=== PATIENT | male | born 1945 | race Caucasian/White ===

== ENCOUNTER 2020-06-16 17:32 | Inpatient (IN) ==
[2020-06-16] MEDS ORDERED: allopurinoL 300 MG TABLET PO PRN (18:10)
[2020-06-16] MEDS ORDERED: allopurinoL 100 MG TABLET PO PRN (18:10)
[2020-06-16] MEDS ORDERED: UBIQUINOL PO SCH (21:00)
[2020-06-16] MEDS ORDERED: Loratadine 10 MG TABLET PO SCH (21:00)
[2020-06-16] MEDS ORDERED: Furosemide 20 MG TABLET PO SCH (21:00)
[2020-06-16] MEDS ORDERED: Acetaminophen 325 MG TABLET PO PRN (21:53)
[2020-06-16] MEDS ORDERED: Sulfamethoxazole/Trimeth Oral Soln 400-80mg/10 ML UDC PO SCH (22:45)
[2020-06-17] MEDS ORDERED: AMPICILLIN IVPB SCH
[2020-06-17] MEDS ORDERED: SULBACTAM IVPB SCH
[2020-06-17] MEDS ORDERED: SODIUM CHLORIDE MINI 0.9% IVPB SCH
[2020-06-17] MEDS: Sacubitril/Valsartan 49/51 MG 1 TABLET PO SCH ×3 (00:01→21:04)
[2020-06-17] MEDS: Benzonatate 100 MG CAPSULE PO PRN ×2 (02:16→21:04)
[2020-06-17 06:41] LABS: Basophils % 0.4 %; Eosinophils # 0.2 K/mcL (0.0-0.6); Eosinophils % 2.4 %; Hematocrit 31.2 % (37.5-50.1); Immature Granulocytes % 0.4 % (0-4); Lymphocytes # 0.6 K/mcL (0.6-4.6); Mean Corpuscular HGB Conc 32.1 g/dL (31.6-35.5); Mean Corpuscular Hemoglobin 30.3 pg (28.0-33.3); Mean Corpuscular Volume 94.5 fL (83.0-100.0); Mean Platelet Volume 9.5 fL (9.4-12.4); Monocytes # 0.6 K/mcL (0.0-1.3); Monocytes % 7.8 %; Neutrophils # 5.8 K/mcL (1.6-8.9); Platelet Count 243 K/mcL (140-400); Red Cell Distribution Width 14.4 % (11.5-14.5); White Blood Count 7.2 K/mcL (4.3-11.1)
[2020-06-17 07:02] LABS: INR 1.6; Prothrombin Time 17.8 Seconds (9.4-12.1)
[2020-06-17 07:14] LABS: BUN/Creatinine Ratio 20 (6-26); Blood Urea Nitrogen 20 mg/dL (8-23); Calcium 8.3 mg/dL (8.6-10.3); Carbon Dioxide 28 mEq/L (23-29); Chloride 105 mEq/L (98-107); Glucose 193 mg/dL (70-105); Osmolality,Calculated 296 (280-300); Potassium 4.7 mEq/L (3.5-5.1); Sodium 139 mEq/L (136-145); eGFR For African Americans > 60 (> 60); eGFR For Non-African Americans > 60 (> 60)
[2020-06-17] MEDS ORDERED: carvediloL 6.25 MG TABLET PO SCH (08:00)
[2020-06-17] MEDS ORDERED: Furosemide 20 MG TABLET PO SCH (08:00)
[2020-06-17] MEDS ORDERED: Warfarin perPT PO PRN (08:01)
[2020-06-17] MEDS ORDERED: Famotidine 20 MG TABLET PO SCH (09:00)
[2020-06-17] MEDS ORDERED: cephALEXin 500 MG CAPSULE PO SCH (09:30)
[2020-06-17] MEDS: Multivit/Ca/Min/Fe/FA 1 TAB TABLET PO SCH (10:25)
[2020-06-17] MEDS: amLODIPine 5 MG TABLET PO SCH (10:25)
[2020-06-17] MEDS: Aspirin Enteric Coated 81 MG Tablet PO SCH (10:25)
[2020-06-17] MEDS: carvediloL 25 MG TABLET PO SCH ×2 (10:28→17:04)
[2020-06-17] MEDS: LINAGLIPTIN 5 MG PO SCH (10:38)
[2020-06-17] MEDS ORDERED: *HR* Dextrose 50 % in Water (Vial) 50 ML VIAL IVP PRN (12:56)
[2020-06-17] MEDS ORDERED: Dextrose Gel 15 GM/37.5 ML TUBE PO PRN ×2 (12:56)
[2020-06-17] MEDS ORDERED: D5% in Water 1,000 ML IVC PRN (12:56)
[2020-06-17] MEDS: allopurinoL 300 MG TABLET PO SCH (14:21)
[2020-06-17] MEDS: Furosemide 40 MG TABLET PO SCH ×2 (14:21→17:04)
[2020-06-17] MEDS: Amoxicillin 500 MG CAPSULE PO SCH ×2 (14:32→21:03)
[2020-06-17] MEDS: Insulin LISPRO 300 UNITS/3 ML VIAL SUBQ SCH (17:04)
[2020-06-17] MEDS ORDERED: *HR* Warfarin 5 MG TABLET PO ONE (18:00)
[2020-06-17] MEDS ORDERED: *HR* Warfarin 5 MG TABLET PO SCH (18:00)
[2020-06-18] MEDS: Benzonatate 100 MG CAPSULE PO PRN (04:12)
[2020-06-18 05:54] LABS: Magnesium 1.8 mg/dL (1.6-2.6); Phosphorous 3.6 mg/dL (2.7-4.5)
[2020-06-18 06:09] LABS: INR 1.5; Prothrombin Time 16.9 Seconds (9.4-12.1)
[2020-06-18] MEDS: Amoxicillin 500 MG CAPSULE PO SCH ×2 (09:08→20:25)
[2020-06-18] MEDS: Multivit/Ca/Min/Fe/FA 1 TAB TABLET PO SCH (09:09)
[2020-06-18] MEDS: allopurinoL 300 MG TABLET PO SCH (09:09)
[2020-06-18] MEDS: Ascorbic Acid 500 MG TABLET PO SCH (09:09)
[2020-06-18] MEDS: carvediloL 25 MG TABLET PO SCH ×2 (09:09→17:37)
[2020-06-18] MEDS: Furosemide 40 MG TABLET PO SCH ×2 (09:10→17:38)
[2020-06-18] MEDS: Insulin LISPRO 300 UNITS/3 ML VIAL SUBQ SCH ×3 (09:10→17:37)
[2020-06-18] MEDS: Aspirin Enteric Coated 81 MG Tablet PO SCH (09:10)
[2020-06-18] MEDS: amLODIPine 5 MG TABLET PO SCH (09:10)
[2020-06-18 09:13] LABS: Estimated Average Glucose 151 mg/dl; Hemoglobin A1C 6.9 %
[2020-06-18] MEDS: LINAGLIPTIN 5 MG PO SCH (09:25)
[2020-06-18] MEDS: Sacubitril/Valsartan 49/51 MG 1 TABLET PO SCH ×2 (09:41→20:25)
[2020-06-18] MEDS ORDERED: Furosemide 40 MG TABLET PO ONE (16:30)
[2020-06-18 17:50] LABS: Vitamin B12 541 pg/mL (250-1100)
[2020-06-18 17:53] LABS: Vitamin D 25 Hydroxy 32 ng/mL (30-80)
[2020-06-18] MEDS ORDERED: *HR* Warfarin 3 MG TABLET PO ONE (18:00)
[2020-06-19 07:52] LABS: INR 1.6; Prothrombin Time 17.9 Seconds (9.4-12.1)
[2020-06-19] MEDS: Ascorbic Acid 500 MG TABLET PO SCH (08:50)
[2020-06-19] MEDS: Amoxicillin 500 MG CAPSULE PO SCH ×2 (08:50→21:01)
[2020-06-19] MEDS: Furosemide 40 MG TABLET PO SCH ×2 (08:50→16:55)
[2020-06-19] MEDS: Aspirin Enteric Coated 81 MG Tablet PO SCH (08:50)
[2020-06-19] MEDS: Multivit/Ca/Min/Fe/FA 1 TAB TABLET PO SCH (08:50)
[2020-06-19] MEDS: amLODIPine 5 MG TABLET PO SCH (08:51)
[2020-06-19] MEDS: Insulin LISPRO 300 UNITS/3 ML VIAL SUBQ SCH ×3 (08:51→16:55)
[2020-06-19] MEDS: allopurinoL 300 MG TABLET PO SCH (08:51)
[2020-06-19] MEDS: carvediloL 25 MG TABLET PO SCH ×2 (08:51→16:54)
[2020-06-19] MEDS: Sacubitril/Valsartan 49/51 MG 1 TABLET PO SCH ×2 (08:52→21:01)
[2020-06-19] MEDS: LINAGLIPTIN 5 MG PO SCH (08:58)
[2020-06-19] MEDS: *HR* Metformin 500 MG TABLET PO SCH (16:55)
[2020-06-19] MEDS ORDERED: allopurinoL 100 MG TABLET PO SCH (18:00)
[2020-06-19] MEDS ORDERED: *HR* Warfarin 3 MG TABLET PO ONE (18:00)
[2020-06-19] MEDS: Benzonatate 100 MG CAPSULE PO PRN (21:01)
[2020-06-19] MEDS: allopurinoL 100 MG TABLET PO SCH (21:55)
[2020-06-20 08:47] LABS: INR 1.6; Prothrombin Time 18.4 Seconds (9.4-12.1)
[2020-06-20] MEDS: Sennosides/Docusate Sodium TABLET PO SCH (08:51)
[2020-06-20] MEDS: Aspirin Enteric Coated 81 MG Tablet PO SCH (08:51)
[2020-06-20] MEDS: Sacubitril/Valsartan 49/51 MG 1 TABLET PO SCH ×2 (08:51→21:09)
[2020-06-20] MEDS: *HR* Metformin 500 MG TABLET PO SCH (08:52)
[2020-06-20] MEDS: Amoxicillin 500 MG CAPSULE PO SCH ×2 (08:52→21:09)
[2020-06-20] MEDS: Ascorbic Acid 500 MG TABLET PO SCH (08:52)
[2020-06-20] MEDS: Furosemide 40 MG TABLET PO SCH ×2 (08:53→17:24)
[2020-06-20] MEDS: allopurinoL 300 MG TABLET PO SCH (08:53)
[2020-06-20] MEDS: amLODIPine 5 MG TABLET PO SCH (08:53)
[2020-06-20] MEDS: carvediloL 25 MG TABLET PO SCH ×2 (08:53→17:22)
[2020-06-20] MEDS: LINAGLIPTIN 5 MG PO SCH (08:53)
[2020-06-20] MEDS: Multivit/Ca/Min/Fe/FA 1 TAB TABLET PO SCH (08:54)
[2020-06-20] MEDS: Insulin LISPRO 300 UNITS/3 ML VIAL SUBQ SCH ×3 (08:54→17:24)
[2020-06-20] MEDS: Simethicone 80 MG TAB.CHEW PO PRN (14:16)
[2020-06-20] MEDS: Benzonatate 100 MG CAPSULE PO PRN ×2 (14:16→22:11)
[2020-06-20] MEDS: Cholecalciferol (D-3) 1,000 UNIT (25MCG) TABLET PO SCH (14:16)
[2020-06-20] MEDS ORDERED: Warfarin 5 MG, Warfarin 2.5 MG PO ONE (18:00)
[2020-06-20] MEDS: allopurinoL 100 MG TABLET PO SCH (21:10)
[2020-06-21 07:46] LABS: INR 1.7; Prothrombin Time 19.3 Seconds (9.4-12.1)
[2020-06-21] MEDS: Aspirin Enteric Coated 81 MG Tablet PO SCH (08:33)
[2020-06-21] MEDS: carvediloL 25 MG TABLET PO SCH ×2 (08:33→17:59)
[2020-06-21] MEDS: Sennosides/Docusate Sodium TABLET PO SCH (08:33)
[2020-06-21] MEDS: Cholecalciferol (D-3) 1,000 UNIT (25MCG) TABLET PO SCH (08:33)
[2020-06-21] MEDS: Sacubitril/Valsartan 49/51 MG 1 TABLET PO SCH ×2 (08:33→20:37)
[2020-06-21] MEDS: Amoxicillin 500 MG CAPSULE PO SCH ×2 (08:33→20:37)
[2020-06-21] MEDS: Ascorbic Acid 500 MG TABLET PO SCH (08:33)
[2020-06-21] MEDS: amLODIPine 5 MG TABLET PO SCH (08:33)
[2020-06-21] MEDS: Multivit/Ca/Min/Fe/FA 1 TAB TABLET PO SCH (08:33)
[2020-06-21] MEDS: allopurinoL 300 MG TABLET PO SCH (08:34)
[2020-06-21] MEDS: LINAGLIPTIN 5 MG PO SCH (08:34)
[2020-06-21] MEDS: Insulin LISPRO 300 UNITS/3 ML VIAL SUBQ SCH ×3 (08:34→16:26)
[2020-06-21] MEDS: Furosemide 40 MG TABLET PO SCH ×2 (08:34→17:59)
[2020-06-21] MEDS ORDERED: Warfarin 5 MG, Warfarin 2.5 MG PO ONE (18:00)
[2020-06-21] MEDS: Benzonatate 100 MG CAPSULE PO PRN (18:06)
[2020-06-21] MEDS: allopurinoL 100 MG TABLET PO SCH (20:38)
[2020-06-22] MEDS: Artificial Tears SOLN 15 ML BOTTLE BOTH EYES PRN ×3 (04:04→17:28)
[2020-06-22 08:46] LABS: Hematocrit 34.8 % (37.5-50.1); Hemoglobin 11.3 g/dL (12.9-16.9); Mean Corpuscular HGB Conc 32.5 g/dL (31.6-35.5); Mean Corpuscular Hemoglobin 30.3 pg (28.0-33.3); Mean Corpuscular Volume 93.3 fL (83.0-100.0); Mean Platelet Volume 10.3 fL (9.4-12.4); Platelet Count 284 K/mcL (140-400); Red Blood Count 3.73 M/mcL (4.19-5.50); Red Cell Distribution Width 14.5 % (11.5-14.5); White Blood Count 6.7 K/mcL (4.3-11.1)
[2020-06-22] MEDS: Cholecalciferol (D-3) 1,000 UNIT (25MCG) TABLET PO SCH (09:16)
[2020-06-22] MEDS: Aspirin Enteric Coated 81 MG Tablet PO SCH (09:16)
[2020-06-22] MEDS: Sennosides/Docusate Sodium TABLET PO SCH (09:16)
[2020-06-22] MEDS: carvediloL 25 MG TABLET PO SCH ×2 (09:16→17:28)
[2020-06-22] MEDS: Multivit/Ca/Min/Fe/FA 1 TAB TABLET PO SCH (09:16)
[2020-06-22] MEDS: LINAGLIPTIN 5 MG PO SCH (09:17)
[2020-06-22] MEDS: Furosemide 40 MG TABLET PO SCH ×2 (09:17→17:28)
[2020-06-22] MEDS: amLODIPine 5 MG TABLET PO SCH (09:17)
[2020-06-22] MEDS: allopurinoL 300 MG TABLET PO SCH (09:17)
[2020-06-22] MEDS: Ascorbic Acid 500 MG TABLET PO SCH (09:17)
[2020-06-22] MEDS: Insulin LISPRO 300 UNITS/3 ML VIAL SUBQ SCH ×3 (09:19→17:28)
[2020-06-22] MEDS: Sacubitril/Valsartan 49/51 MG 1 TABLET PO SCH ×2 (09:24→20:42)
[2020-06-22] MEDS: Amoxicillin 500 MG CAPSULE PO SCH ×2 (09:24→20:42)
[2020-06-22 09:25] LABS: INR 1.6; Prothrombin Time 18.7 Seconds (9.4-12.1)
[2020-06-22 09:27] LABS: Alanine Aminotransferase 22 Units/L (7-52); Albumin 3.3 g/dL (3.5-5.7); Alkaline Phosphatase 96 Units/L (34-104); Aspartate Amino Transferase 17 Units/L (13-39); BUN/Creatinine Ratio 32 (6-26); Bilirubin,Total 0.6 mg/dL (0.3-1.0); Blood Urea Nitrogen 39 mg/dL (8-23); Carbon Dioxide 32 mEq/L (23-29); Chloride 98 mEq/L (98-107); Globulin 3.2 g/dL (2.4-3.5); Glucose 149 mg/dL (70-105); Osmolality,Calculated 298 (280-300); Potassium 4.5 mEq/L (3.5-5.1); Sodium 138 mEq/L (136-145); Total Protein 6.5 g/dL (6.4-8.9); eGFR For African Americans > 60 (> 60); eGFR For Non-African Americans 57 (> 60)
[2020-06-22] MEDS ORDERED: *HR* Heparin 5,000 UNIT/ML VIAL SQ SCH (14:00)
[2020-06-22] MEDS: Benzonatate 100 MG CAPSULE PO PRN (17:28)
[2020-06-22] MEDS: allopurinoL 100 MG TABLET PO SCH (20:42)
[2020-06-22] MEDS: Apixaban 5 MG TABLET PO SCH (20:42)
[2020-06-23] MEDS: Artificial Tears SOLN 15 ML BOTTLE BOTH EYES PRN ×2 (01:36→08:35)
[2020-06-23 07:31] LABS: INR 2.1; Prothrombin Time 24.2 Seconds (9.4-12.1)
[2020-06-23] MEDS: Insulin LISPRO 300 UNITS/3 ML VIAL SUBQ SCH ×3 (08:35→17:03)
[2020-06-23] MEDS: amLODIPine 5 MG TABLET PO SCH (08:37)
[2020-06-23] MEDS: Furosemide 40 MG TABLET PO SCH ×2 (08:37→17:03)
[2020-06-23] MEDS: Cholecalciferol (D-3) 1,000 UNIT (25MCG) TABLET PO SCH (08:38)
[2020-06-23] MEDS: Aspirin Enteric Coated 81 MG Tablet PO SCH (08:38)
[2020-06-23] MEDS: allopurinoL 300 MG TABLET PO SCH (08:38)
[2020-06-23] MEDS: Apixaban 5 MG TABLET PO SCH (08:38)
[2020-06-23] MEDS: Amoxicillin 500 MG CAPSULE PO SCH ×2 (08:38→21:47)
[2020-06-23] MEDS: Sennosides/Docusate Sodium TABLET PO SCH (08:38)
[2020-06-23] MEDS: Multivit/Ca/Min/Fe/FA 1 TAB TABLET PO SCH (08:38)
[2020-06-23] MEDS: carvediloL 25 MG TABLET PO SCH ×2 (08:38→17:03)
[2020-06-23] MEDS: Ascorbic Acid 500 MG TABLET PO SCH (08:38)
[2020-06-23] MEDS: LINAGLIPTIN 5 MG PO SCH (08:40)
[2020-06-23] MEDS: Sacubitril/Valsartan 49/51 MG 1 TABLET PO SCH ×2 (11:21→21:47)
[2020-06-23] MEDS: Lacri-Lube 3.5 GM TUBE BOTH EYES PRN (12:13)
[2020-06-23] MEDS: Benzonatate 100 MG CAPSULE PO PRN (21:47)
[2020-06-23] MEDS: allopurinoL 100 MG TABLET PO SCH (21:47)
[2020-06-24 06:52] LABS: Alanine Aminotransferase 19 Units/L (7-52); Albumin 3.3 g/dL (3.5-5.7); Albumin/Globulin Ratio 1.1 (1.1-2.2); Alkaline Phosphatase 92 Units/L (34-104); Aspartate Amino Transferase 14 Units/L (13-39); BUN/Creatinine Ratio 39 (6-26); Bilirubin,Total 0.6 mg/dL (0.3-1.0); Blood Urea Nitrogen 48 mg/dL (8-23); Calcium 8.8 mg/dL (8.6-10.3); Carbon Dioxide 31 mEq/L (23-29); Chloride 98 mEq/L (98-107); Globulin 2.9 g/dL (2.4-3.5); Glucose 154 mg/dL (70-105); Osmolality,Calculated 300 (280-300); Potassium 4.3 mEq/L (3.5-5.1); Sodium 137 mEq/L (136-145); Total Protein 6.2 g/dL (6.4-8.9); eGFR For African Americans > 60 (> 60); eGFR For Non-African Americans 58 (> 60)
[2020-06-24] MEDS: Insulin LISPRO 300 UNITS/3 ML VIAL SUBQ SCH ×3 (09:38→17:15)
[2020-06-24] MEDS: Ascorbic Acid 500 MG TABLET PO SCH (09:39)
[2020-06-24] MEDS: Amoxicillin 500 MG CAPSULE PO SCH ×2 (09:39→19:58)
[2020-06-24] MEDS: Cholecalciferol (D-3) 1,000 UNIT (25MCG) TABLET PO SCH (09:39)
[2020-06-24] MEDS: allopurinoL 300 MG TABLET PO SCH (09:39)
[2020-06-24] MEDS: Sennosides/Docusate Sodium TABLET PO SCH (09:39)
[2020-06-24] MEDS: Aspirin Enteric Coated 81 MG Tablet PO SCH (09:39)
[2020-06-24] MEDS: Multivit/Ca/Min/Fe/FA 1 TAB TABLET PO SCH (09:39)
[2020-06-24] MEDS: amLODIPine 5 MG TABLET PO SCH (09:39)
[2020-06-24] MEDS: carvediloL 25 MG TABLET PO SCH ×2 (09:39→17:15)
[2020-06-24] MEDS: Furosemide 40 MG TABLET PO SCH ×2 (09:40→17:15)
[2020-06-24] MEDS: Lacri-Lube 3.5 GM TUBE BOTH EYES PRN ×2 (09:43→19:58)
[2020-06-24] MEDS: Sacubitril/Valsartan 49/51 MG 1 TABLET PO SCH ×2 (09:45→19:57)
[2020-06-24] MEDS: LINAGLIPTIN 5 MG PO SCH (09:46)
[2020-06-24] MEDS ORDERED: *HR* Warfarin 5 MG TABLET PO ONE (19:15)
[2020-06-24] MEDS: allopurinoL 100 MG TABLET PO SCH (19:58)
[2020-06-24] MEDS: Benzonatate 100 MG CAPSULE PO PRN (19:58)
[2020-06-25 07:21] LABS: INR 1.8
[2020-06-25] MEDS: Aspirin Enteric Coated 81 MG Tablet PO SCH (08:11)
[2020-06-25] MEDS: Furosemide 40 MG TABLET PO SCH ×2 (08:11→18:17)
[2020-06-25] MEDS: Cholecalciferol (D-3) 1,000 UNIT (25MCG) TABLET PO SCH (08:11)
[2020-06-25] MEDS: Amoxicillin 500 MG CAPSULE PO SCH ×2 (08:11→20:42)
[2020-06-25] MEDS: Multivit/Ca/Min/Fe/FA 1 TAB TABLET PO SCH (08:11)
[2020-06-25] MEDS: Sennosides/Docusate Sodium TABLET PO SCH (08:11)
[2020-06-25] MEDS: amLODIPine 5 MG TABLET PO SCH (08:11)
[2020-06-25] MEDS: Sacubitril/Valsartan 49/51 MG 1 TABLET PO SCH ×2 (08:11→20:42)
[2020-06-25] MEDS: allopurinoL 300 MG TABLET PO SCH (08:11)
[2020-06-25] MEDS: Ascorbic Acid 500 MG TABLET PO SCH (08:11)
[2020-06-25] MEDS: carvediloL 25 MG TABLET PO SCH ×2 (08:11→18:17)
[2020-06-25] MEDS: LINAGLIPTIN 5 MG PO SCH (08:12)
[2020-06-25] MEDS: Insulin LISPRO 300 UNITS/3 ML VIAL SUBQ SCH ×3 (08:24→18:16)
[2020-06-25] MEDS: Artificial Tears SOLN 15 ML BOTTLE BOTH EYES PRN ×2 (08:24→18:18)
[2020-06-25] MEDS ORDERED: Warfarin perPT PO PRN (18:00)
[2020-06-25] MEDS ORDERED: *HR* Warfarin 5 MG TABLET PO ONE (18:00)
[2020-06-25] MEDS: Benzonatate 100 MG CAPSULE PO PRN (20:42)
[2020-06-25] MEDS: Lacri-Lube 3.5 GM TUBE BOTH EYES PRN (20:42)
[2020-06-25] MEDS: allopurinoL 100 MG TABLET PO SCH (20:42)
[2020-06-26 07:20] LABS: INR 1.8; Prothrombin Time 20.2 Seconds (9.4-12.1)
[2020-06-26] MEDS: Insulin LISPRO 300 UNITS/3 ML VIAL SUBQ SCH ×4 (08:02→20:29)
[2020-06-26] MEDS: allopurinoL 300 MG TABLET PO SCH (08:03)
[2020-06-26] MEDS: Furosemide 40 MG TABLET PO SCH ×2 (08:03→16:45)
[2020-06-26] MEDS: amLODIPine 5 MG TABLET PO SCH (08:03)
[2020-06-26] MEDS: Cholecalciferol (D-3) 1,000 UNIT (25MCG) TABLET PO SCH (08:03)
[2020-06-26] MEDS: Multivit/Ca/Min/Fe/FA 1 TAB TABLET PO SCH (08:03)
[2020-06-26] MEDS: Sennosides/Docusate Sodium TABLET PO SCH (08:03)
[2020-06-26] MEDS: Aspirin Enteric Coated 81 MG Tablet PO SCH (08:03)
[2020-06-26] MEDS: Amoxicillin 500 MG CAPSULE PO SCH ×2 (08:03→20:28)
[2020-06-26] MEDS: carvediloL 25 MG TABLET PO SCH ×2 (08:03→16:45)
[2020-06-26] MEDS: Ascorbic Acid 500 MG TABLET PO SCH (08:03)
[2020-06-26] MEDS: LINAGLIPTIN 5 MG PO SCH (08:04)
[2020-06-26] MEDS: Sacubitril/Valsartan 49/51 MG 1 TABLET PO SCH ×2 (08:06→20:29)
[2020-06-26] MEDS: Simethicone 80 MG TAB.CHEW PO PRN (17:56)
[2020-06-26] MEDS ORDERED: *HR* Warfarin 3 MG TABLET PO ONE (18:00)
[2020-06-26] MEDS: allopurinoL 100 MG TABLET PO SCH (20:28)
[2020-06-26] MEDS: Benzonatate 100 MG CAPSULE PO PRN (20:29)
[2020-06-26] MEDS: Lacri-Lube 3.5 GM TUBE BOTH EYES PRN (23:34)
[2020-06-27] MEDS ORDERED: Melatonin 3 MG TABLET PO PRN (02:42)
[2020-06-27 08:08] LABS: INR 1.8; Prothrombin Time 20.4 Seconds (9.4-12.1)
[2020-06-27] MEDS: Multivit/Ca/Min/Fe/FA 1 TAB TABLET PO SCH (08:41)
[2020-06-27] MEDS: Insulin LISPRO 300 UNITS/3 ML VIAL SUBQ SCH ×4 (08:42→21:41)
[2020-06-27] MEDS: allopurinoL 300 MG TABLET PO SCH (08:42)
[2020-06-27] MEDS: Furosemide 40 MG TABLET PO SCH ×2 (08:42→16:15)
[2020-06-27] MEDS: carvediloL 25 MG TABLET PO SCH ×2 (08:42→16:15)
[2020-06-27] MEDS: Ascorbic Acid 500 MG TABLET PO SCH (08:42)
[2020-06-27] MEDS: amLODIPine 5 MG TABLET PO SCH (08:42)
[2020-06-27] MEDS: Sacubitril/Valsartan 49/51 MG 1 TABLET PO SCH ×2 (08:42→21:40)
[2020-06-27] MEDS: Aspirin Enteric Coated 81 MG Tablet PO SCH (08:42)
[2020-06-27] MEDS: Amoxicillin 500 MG CAPSULE PO SCH ×2 (08:42→21:40)
[2020-06-27] MEDS: Cholecalciferol (D-3) 1,000 UNIT (25MCG) TABLET PO SCH (08:42)
[2020-06-27] MEDS: Sennosides/Docusate Sodium TABLET PO SCH (08:43)
[2020-06-27] MEDS: LINAGLIPTIN 5 MG PO SCH (08:43)
[2020-06-27] MEDS ORDERED: *HR* Warfarin 7.5 MG TABLET PO ONE (18:00)
[2020-06-27] MEDS: Benzonatate 100 MG CAPSULE PO PRN (18:01)
[2020-06-27] MEDS: allopurinoL 100 MG TABLET PO SCH (21:40)
[2020-06-27] MEDS: Artificial Tears SOLN 15 ML BOTTLE BOTH EYES PRN (21:43)
[2020-06-28 08:42] LABS: INR 1.7; Prothrombin Time 19.2 Seconds (9.4-12.1)
[2020-06-28] MEDS: Insulin LISPRO 300 UNITS/3 ML VIAL SUBQ SCH ×4 (08:50→21:37)
[2020-06-28] MEDS: Furosemide 40 MG TABLET PO SCH ×2 (08:51→17:31)
[2020-06-28] MEDS: allopurinoL 300 MG TABLET PO SCH (08:51)
[2020-06-28] MEDS: Aspirin Enteric Coated 81 MG Tablet PO SCH (08:51)
[2020-06-28] MEDS: Amoxicillin 500 MG CAPSULE PO SCH ×2 (08:51→21:36)
[2020-06-28] MEDS: Ascorbic Acid 500 MG TABLET PO SCH (08:51)
[2020-06-28] MEDS: Cholecalciferol (D-3) 1,000 UNIT (25MCG) TABLET PO SCH (08:51)
[2020-06-28] MEDS: carvediloL 25 MG TABLET PO SCH ×2 (08:51→17:31)
[2020-06-28] MEDS: LINAGLIPTIN 5 MG PO SCH (08:52)
[2020-06-28] MEDS: Multivit/Ca/Min/Fe/FA 1 TAB TABLET PO SCH (08:52)
[2020-06-28] MEDS: Sennosides/Docusate Sodium TABLET PO SCH (08:52)
[2020-06-28] MEDS: amLODIPine 5 MG TABLET PO SCH (08:52)
[2020-06-28] MEDS: Sacubitril/Valsartan 49/51 MG 1 TABLET PO SCH ×2 (08:59→21:36)
[2020-06-28 09:31] LABS: Basophils % 0.3 %; Eosinophils # 0.3 K/mcL (0.0-0.6); Eosinophils % 5.8 %; Hematocrit 33.9 % (37.5-50.1); Hemoglobin 11.1 g/dL (12.9-16.9); Immature Granulocytes % 0.5 % (0-4); Lymphocytes # 0.7 K/mcL (0.6-4.6); Lymphocytes % 12.7 %; Mean Corpuscular HGB Conc 32.7 g/dL (31.6-35.5); Mean Corpuscular Hemoglobin 30.6 pg (28.0-33.3); Mean Corpuscular Volume 93.4 fL (83.0-100.0); Mean Platelet Volume 10.3 fL (9.4-12.4); Monocytes # 0.3 K/mcL (0.0-1.3); Monocytes % 5.1 %; Neutrophils # 4.4 K/mcL (1.6-8.9); Platelet Count 237 K/mcL (140-400); Red Blood Count 3.63 M/mcL (4.19-5.50); Red Cell Distribution Width 15.3 % (11.5-14.5); Segmented Neutrophils % 75.6 %; White Blood Count 5.8 K/mcL (4.3-11.1)
[2020-06-28 09:44] LABS: BUN/Creatinine Ratio 47 (6-26); Blood Urea Nitrogen 58 mg/dL (8-23); Calcium 8.8 mg/dL (8.6-10.3); Carbon Dioxide 30 mEq/L (23-29); Chloride 98 mEq/L (98-107); Glucose 226 mg/dL (70-105); Osmolality,Calculated 303 (280-300); Potassium 4.8 mEq/L (3.5-5.1); Sodium 135 mEq/L (136-145); eGFR For African Americans > 60 (> 60); eGFR For Non-African Americans 57 (> 60)
[2020-06-28] MEDS: Benzonatate 100 MG CAPSULE PO PRN (17:36)
[2020-06-28] MEDS ORDERED: *HR* Warfarin 5 MG TABLET PO ONE (18:00)
[2020-06-28] MEDS: allopurinoL 100 MG TABLET PO SCH (21:36)
[2020-06-28] MEDS: Artificial Tears SOLN 15 ML BOTTLE BOTH EYES PRN (21:37)
[2020-06-29 07:27] LABS: INR 1.8; Prothrombin Time 20.4 Seconds (9.4-12.1)
[2020-06-29 07:35] VITALS: BP 109/63
[2020-06-29] MEDS: Sacubitril/Valsartan 49/51 MG 1 TABLET PO SCH (09:47)
[2020-06-29] MEDS: Amoxicillin 500 MG CAPSULE PO SCH (09:47)
[2020-06-29] MEDS: Insulin LISPRO 300 UNITS/3 ML VIAL SUBQ SCH ×2 (09:53→13:52)
[2020-06-29] MEDS: carvediloL 25 MG TABLET PO SCH (10:41)
[2020-06-29] MEDS: Furosemide 40 MG TABLET PO SCH (10:41)
[2020-06-29] MEDS: amLODIPine 5 MG TABLET PO SCH (10:41)
[2020-06-29] MEDS: Aspirin Enteric Coated 81 MG Tablet PO SCH (10:41)
[2020-06-29] MEDS: LINAGLIPTIN 5 MG PO SCH (10:41)
[2020-06-29] MEDS: Ascorbic Acid 500 MG TABLET PO SCH (10:42)
[2020-06-29] MEDS: Cholecalciferol (D-3) 1,000 UNIT (25MCG) TABLET PO SCH (10:42)
[2020-06-29] MEDS: Sennosides/Docusate Sodium TABLET PO SCH (10:42)
[2020-06-29] MEDS: allopurinoL 300 MG TABLET PO SCH (10:42)
[2020-06-29] MEDS: Multivit/Ca/Min/Fe/FA 1 TAB TABLET PO SCH (10:42)
[2020-06-29] MEDS ORDERED: *HR* Warfarin 5 MG TABLET PO ONE (18:00)
== END 2020-06-29 17:58 | disposition home health service (06) | DRG 559 ==
LOC: INPPIK 21:48
PROVIDERS: ADMIT Family Medicine; ATTEND Family Medicine